=== PATIENT | male | born 1975 | race Caucasian/White ===

== ENCOUNTER 2020-05-13 15:27 | Outpatient (REF) | payer OTHER, SELFPAY | END 2020-05-13 15:28 | disposition home or self-care (01) | LOC: HO.LAB 15:27 | PROVIDERS: PCP Internal Medicine; Visit Provider Internal Medicine | DX: Z20.822 Contact with and (suspected) exposure to COVID-19 (principal) | CPT/HCPCS: 36415; C9803; U0003 ==

== ENCOUNTER 2020-05-22 07:35 | Outpatient (REF) | payer OTHER, SELFPAY | END 2020-05-22 07:36 | disposition home or self-care (01) | LOC: HO.LAB 07:35 | PROVIDERS: Visit Provider Internal Medicine | DX: Z20.822 Contact with and (suspected) exposure to COVID-19 (principal) | CPT/HCPCS: 36415; C9803; U0003 ==

== ENCOUNTER 2020-08-03 02:19 | Emergency (ER) | payer OTHER, SELFPAY ==
--- NOTE | ~2020-08-03 | XR_ITS ---
EXAMINATION: CHEST 1 VIEW CLINICAL INFORMATION: Chest pain. COMPARISON: None. TECHNIQUE: An AP view of the chest is provided. FINDINGS: The cardiac silhouette is not enlarged. The mediastinal and hilar contours are unremarkable. There are neither pleural effusions nor pneumothoraces. There is mild bibasilar atelectasis. There are no consolidations. The osseous structures are unremarkable. XR/XR chest 1V IMPRESSION: No consolidations. Mild bibasilar atelectasis.
--- NOTE | 2020-08-03 02:27 | ECG_ITS ---
Test Reason : CHEST PAIN Blood Pressure : / mmHG Vent. Rate : 091 BPM Atrial Rate : 091 BPM P-R Int : 162 ms QRS Dur : 086 ms QT Int : 384 ms P-R-T Axes : 040 034 025 degrees QTc Int : 472 ms Normal sinus rhythm Cannot rule out Anterior infarct , age undetermined Abnormal ECG When compared with ECG of 09-JUN-2007 09:00, Nonspecific T wave abnormality now evident in Anterior leads QT has lengthened Referred By: Leanna Jesus Electronically Signed By:Dilip Ramesh
--- NOTE | 2020-08-03 02:28 | ED.CHESTPAIN ---
HPI - Chest Pain General Chief Complaint: Chest Pain Stated Complaint: chest pressure Time Seen by Provider: 08/03/20 02:27 Source: patient and EMS Mode of arrival: EMS Limitations: no limitations History of Present Illness HPI narrative: 45 years old male came in by ambulance for assessment of left-sided chest pain started around 01:30. 45-year-old male with history of left-sided chest pain for 1 year on and off, described as left chest side of dullness pain, no radiation, intermittent, when it comes is about 6/10, patient notices if he use cocaine he gets this chest pain patient admitted to use a small amount of cocaine IV earlier today 8 hours ago, patient normally active but never had exertional chest pain. Nothing makes the pain worse or better. Related Data Previous Rx's Medication Instructions Recorded hydrochlorothiazide 25 mg PO DAILY #30 tab 08/03/20 Allergies Allergy/AdvReac Type Severity Reaction Status Date / Time No Known Allergies Allergy Mild UNKNOWN Verified 08/03/20 02:28 Review of Systems Review of Systems: All other systems are reviewed and are negative Constitutional: Reports as per HPI and Reports no additional constitutional complaints Eyes: Reports as per HPI and Reports no additional eye complaints Reports system reviewed and no additional complaints, except as documented Cardiovascular: Reports as per HPI and Reports no additional cardiovascular complaints Respiratory: Reports as per HPI and Reports no additional respiratory complaints Gastrointestinal: Reports as per HPI and Reports no additional gastrointestinal complaints Genitourinary: Reports no additional female genitourinary complaints Musculoskeletal: Reports no additional musculoskeletal complaints Skin/Breast: Reports system reviewed and no additional complaints, except as docu Psychiatric: Reports no additional psychiatric complaints Endocrine: Reports no additional endocrine complaints Hematologic/Lymphatic: Reports no additional hematologic/lymphatic complaints Allergic/Immunologic: Reports no additional allergic/immunologic complaints Reports system reviewed and no additional complaints, except as documented and Reports Abnormal speech present [facility] Past Medical History Medical History (Updated 08/03/20 @ 06:15 by Leanna Jesus MD) Substance abuse Social History Social History Advance Directives: No Advance Directives Information Provided: No Physical Exam Vital Signs: Vital Signs: Last Vital Signs Temp 98.7 F 08/03/20 02:29 Pulse 88 08/03/20 02:29 Resp 18 08/03/20 02:29 BP 151/96 H 08/03/20 02:29 Pulse Ox 98 08/03/20 02:29 Body Mass Index 30.8 Vital signs have been reviewed as appeared to be correct. Blood pressure elevated. Heart rate normal. Respiration rate normal. Temperature normal. Oxygen saturation normal. Appearance: Alert. Oriented X3. No acute distress. Anxious. Head: Normal external exam. Normocephalic. Atraumatic. No Rodriguez signs noted. No raccoon eyes noted Eyes: PERRLA. EOMI. Conjunctiva and sclera normal. Eyelids normal. ENT: TM's Normal. Pharynx normal. Uvula midline. Moist mucous membranes. No trismus noted. No drooling noted. No muffled voice noted. Neck: Normal inspection. Neck supple. FROM. No adenopathy. Thyroid Normal. No meningeal signs. No neck mass noted. CVS: Normal heart rate and rhythm. Heart sound normal. No murmurs noted. Pulses normal throughout. Respiratory: No respiratory distress. Painless inspiration. Breath sounds normal. No wheezes/rales/rhonchi noted. Chest nontender. No accessory muscle usage noted or decreased air movement noted. Abdomen: Soft and nontender. Bowel sounds normal in all 4 quadrants. No distention noted. No organomegaly noted. No visible injury noted. Back: No CVA tenderness. Full range of motion noted. Skin: Skin warm and dry. Normal skin color. Normal skin turgor. No rashes/lesions/lacerations noted. Extremities: No lower extremity edema. Extremities exhibit normal range of motion. Extremities nontender. Neuro: Oriented X 3. No motor deficit. No sensory deficit. Reflexes normal. Course Course Course Narrative: Assessment and plan. 45-year-old male with history of anxiety and drug abuse, patient came in after used cocaine IV with chest pain, patient has no evidence of ACS on the EKG, 1st troponin is negative 2nd troponin is due at 06:[address] Carter to check that then discharge the patient home but negative. Patient also had no recent travel no lower extremity swelling patient has a normal D-dimer. Patient is known to have hypertension due to no insurance and no PCP patient is not taking any medicine will start the patient on hydrochlorothiazide 25 mg daily until he sees his doctor in a few weeks. MDM - Chest Pain Lab Data Attestation: I reviewed the patient's lab results. Result diagrams: 08/03/20 03:24 08/03/20 03:24 Labs: Lab Results 08/03/20 08/03/20 08/03/20 Range/Units 03:24 03:24 03:24 WBC 7.1 (4.8-10.8) X10*3/uL RBC 4.39 L (4.60-5.80) X10*6/uL Hgb 13.5 L (14.0-18.0) g/dl Hct 38.3 L (42-52) % MCV 87.2 (80-98) fL MCH 30.8 (27.0-33.0) pg MCHC 35.2 (31.0-36.0) g/dl RDW 13.2 (11.0-16.0) % Plt Count 229 (160-400) X10*3/uL MPV 8.9 L (9.4-12.4) fL Immature Gran % (Auto) 0.3 (0.0-0.4) % Neut % (Auto) 70.8 (45-73) % Lymph % (Auto) 19.5 L (20-40) % [place] % (Auto) 7.7 (2-11) % Eos % (Auto) 1.3 (0-4) % Baso % (Auto) 0.4 (0-2) % Lymph # (Auto) 1.4 (1.2-4.9) X10*3/uL [place] # (Auto) 0.6 (0.1-1.2) X10*3/uL Eos # (Auto) 0.1 (0.0-0.4) X10*3/uL Baso # (Auto) 0.0 (0.0-0.2) X10*3/uL Abs Immat Gran (auto) 0.02 (0.00-0.03) X10*3/uL Absolute Neuts (auto) 5.1 (2.0-8.3) X10*3/uL Absolute Nucleated RBC 0.000 (0.0-0.012) X10*3/uL Nucleated RBC % (auto) 0.0 (0.0-0.2) /100WBC D-Dimer NG/ML Sodium 136 (135-145) mmol/L Potassium 4.4 (3.3-5.1) mmol/L Chloride 98 (96-108) mmol/L Carbon Dioxide 29 (22-29) mmol/L Anion Gap 13 (12-20) BUN 15 (9-16) mg/dL Creatinine 1.08 (0.5-1.4) mg/dL Estim Creat Clear Calc 113.4 Estimated GFR > 60 Random Glucose 99 (60-115) mg/dL Calcium 8.6 (8.4-10.2) mg/dL Total Bilirubin 0.2 (0.0-1.0) mg/dL Direct Bilirubin 0.2 (0.0-0.5) mg/dL AST 27 (5-37) U/L ALT 37 (0-40) U/L Alkaline Phosphatase 87 (39-117) U/L Troponin I High Sens < 3.5 (<3.5-35.0) ng/L Total Protein 7.1 (6.5-8.0) g/dL Albumin 4.2 (3.5-5.0) g/dL Lipase 22 (8-78) U/L 04// Range/Units 03:24 WBC (4.8-10.8) X10*3/uL RBC (4.60-5.80) X10*6/uL Hgb (14.0-18.0) g/dl Hct (42-52) % MCV (80-98) fL MCH (27.0-33.0) pg MCHC (31.0-36.0) g/dl RDW (11.0-16.0) % Plt Count (160-400) X10*3/uL MPV (9.4-12.4) fL Immature Gran % (Auto) (0.0-0.4) % Neut % (Auto) (45-73) % Lymph % (Auto) (20-40) % [place] % (Auto) (2-11) % Eos % (Auto) (0-4) % Baso % (Auto) (0-2) % Lymph # (Auto) (1.2-4.9) X10*3/uL [place] # (Auto) (0.1-1.2) X10*3/uL Eos # (Auto) (0.0-0.4) X10*3/uL Baso # (Auto) (0.0-0.2) X10*3/uL Abs Immat Gran (auto) (0.00-0.03) X10*3/uL Absolute Neuts (auto) (2.0-8.3) X10*3/uL Absolute Nucleated RBC (0.0-0.012) X10*3/uL Nucleated RBC % (auto) (0.0-0.2) /100WBC D-Dimer 221 NG/ML Sodium (135-145) mmol/L Potassium (3.3-5.1) mmol/L Chloride (96-108) mmol/L Carbon Dioxide (22-29) mmol/L Anion Gap (12-20) BUN (9-16) mg/dL Creatinine (0.5-1.4) mg/dL Estim Creat Clear Calc Estimated GFR Random Glucose (60-115) mg/dL Calcium (8.4-10.2) mg/dL Total Bilirubin (0.0-1.0) mg/dL Direct Bilirubin (0.0-0.5) mg/dL AST (5-37) U/L ALT (0-40) U/L Alkaline Phosphatase (39-117) U/L Troponin I High Sens (<3.5-35.0) ng/L Total Protein (6.5-8.0) g/dL Albumin (3.5-5.0) g/dL Lipase (8-78) U/L Imaging Data Chest x-ray: Radiologist's impression: No acute pathology. ECG Data ECG #1: Interpretation: Normal sinus rhythm at 91 beats per minute, normal axis deviation, normal intervals, nonspecific T-wave flattening in V4, V5, V6. Discharge Plan Discharge Clinical Impression: Chest pain Qualifiers: Chest pain type: unspecified Qualified Code(s): R07.9 - Chest pain, unspecified Hypertension Qualifiers: Hypertension type: essential hypertension Qualified Code(s): I10 - Essential (primary) hypertension Patient Disposition: Home, Self-Care Instructions: Chest Pain (ED), Hypertension (ED) Prescriptions: New hydrochlorothiazide 25 mg tablet 25 mg PO DAILY Qty: 30 RF: 0 Referrals: Cruz Ball MD [Physician] - 2 days
[2020-08-03 02:29] VITALS: BP 151/96; BP 158/90; PULSE 105; PULSE 88; RESP 18; TEMP 37.1; O2SAT 97; O2SAT 98; BMI 30.8
[2020-08-03 03:42] LABS: MANUAL DIFF FLAG NO
[2020-08-03 03:44] LABS: Basophils Percent Auto 0.4 % (0-2); Eosinophils Absolute Auto 0.1 X10*3/uL (0.0-0.4); Eosinophils Percent Auto 1.3 % (0-4); Hematocrit 38.3 % (42-52); Hemoglobin 13.5 g/dl (14.0-18.0); Imm Gran Abs Auto 0.02 X10*3/uL (0.00-0.03); Imm Gran Pct Auto 0.3 % (0.0-0.4); Lymphocytes Absolute Auto 1.4 X10*3/uL (1.2-4.9); Lymphocytes Percent Auto 19.5 % (20-40); Mean Corpuscular HGB Conc 35.2 g/dl (31.0-36.0); Mean Corpuscular Hemoglobin 30.8 pg (27.0-33.0); Mean Corpuscular Volume 87.2 fL (80-98); Mean Platelet Volume 8.9 fL (9.4-12.4); Monocytes Absolute Auto 0.6 X10*3/uL (0.1-1.2); Monocytes Percent Auto 7.7 % (2-11); Neutrophils Absolute Auto 5.1 X10*3/uL (2.0-8.3); Neutrophils Percent Auto 70.8 % (45-73); Platelet Count 229 X10*3/uL (160-400); Red Blood Count 4.39 X10*6/uL (4.60-5.80); Red Cell Distribution Width 13.2 % (11.0-16.0); White Blood Count 7.1 X10*3/uL (4.8-10.8)
[2020-08-03 03:53] LABS: D Dimer 221 NG/ML
[2020-08-03 04:10] LABS: Alanine Aminotransferase 37 U/L (0-40); Albumin Level 4.2 g/dL (3.5-5.0); Alkaline Phosphatase 87 U/L (39-117); Anion Gap 13 (12-20); Aspartate Amino Transferase 27 U/L (5-37); Bilirubin Direct 0.2 mg/dL (0.0-0.5); Bilirubin Total 0.2 mg/dL (0.0-1.0); Blood Urea Nitrogen 15 mg/dL (9-16); Calcium 8.6 mg/dL (8.4-10.2); Carbon Dioxide 29 mmol/L (22-29); Chloride 98 mmol/L (96-108); Creatinine Clr Calc Pharmacy 113.4; Estimated Glomerular Filt Rate > 60; Glucose Random 99 mg/dL (60-115); Lipase 22 U/L (8-78); Potassium 4.4 mmol/L (3.3-5.1); Sodium 136 mmol/L (135-145); Total Protein 7.1 g/dL (6.5-8.0)
[2020-08-03 04:12] LABS: Troponin-I High Sensitivity < 3.5 ng/L (<3.5-35.0)
[2020-08-03] MEDS: LORazepam 2 MG/ML VIAL 1 MG IVPUSH (04:40)
[2020-08-03 06:31] VITALS: BP 118/65; PULSE 74; RESP 16; O2SAT 97
[2020-08-03] MEDS: hydroCHLOROthiazide 25 MG TABLET PO (06:31)
[2020-08-03 09:08] LABS: Troponin-I High Sensitivity < 3.5 ng/L (<3.5-35.0)
== END 2020-08-03 09:22 | disposition home or self-care (01) ==
PROVIDERS: Emergency Provider Emergency Medicine
DX: R07.9 Chest pain, unspecified (principal); I10 Essential (primary) hypertension; F14.10 Cocaine abuse, uncomplicated
CPT/HCPCS: 36415; 71045; 80048; 80076; 83690; 84484; 85025; 85379; 93005; 96374; 99283; 99284; J2060

== ENCOUNTER 2022-09-20 12:33 | Emergency (ER) | payer OTHER, SELFPAY ==
--- NOTE | ~2022-09-20 | XR_ITS ---
EXAMINATION: XR SHOULDER, LEFT CLINICAL INFORMATION: Left shoulder pain. COMPARISON: None available. TECHNIQUE: AP external rotation, Grashey, scapular Y, and axillary views of the left shoulder. FINDINGS: The bones and soft tissues are normal. Tiny densities are seen along the superior margin of the bony glenoid. Glenohumeral and acromioclavicular alignment is anatomic with normal joint space. No abnormal soft tissue calcifications. Old healed lateral left seventh rib fracture. XR/XR shoulder LT min 2V IMPRESSION: Tiny densities along the superior margin of the bony glenoid could be degenerative in nature. Avulsion type injury cannot be excluded. Correlate with physical exam. No other significant abnormality.
[2022-09-20 12:48] VITALS: BP 137/97; PULSE 91; RESP 20; TEMP 36.7; O2SAT 99; BMI 30.8
--- NOTE | 2022-09-20 12:48 | ED_ITS ---
HPI - General Adult General Chief complaint: Extremity Injury, Upper Stated complaint: L SHOULDER PAIN X'S FOR DAYS,NO INJURY PER EMS Time Seen by Provider: 09/20/22 13:23 Source: patient Limitations: no limitations History of Present Illness HPI narrative: 47-year-old male complaining of left shoulder pain over the past 3 days. 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 Patient denies any trauma or falls or injuries to the left shoulder. Patient states pain increases with any range of motion is on the lateral aspect of the left shoulder. Patient denies chest pain shortness of breath fever chills. Patient states he is on methadone daily and has not had a slip up and is quite some time. Symptoms are [id number] no other complaints at this time. Related Data Previous Rx's Medication Instructions Recorded hydrochlorothiazide 25 mg tablet 25 mg PO DAILY #30 tabs 08/03/20 methocarbamol 750 mg tablet 750 mg PO TID PRN muscle spasm #20 09/20/22 tabs naproxen 500 mg tablet 500 mg PO BID PRN pain #30 tabs 09/20/22 prednisone 20 mg tablet 40 mg PO DAILY 3 days #6 tabs 09/20/22 Allergies Allergy/AdvReac Type Severity Reaction Status Date / Time No Known Allergies Allergy Mild UNKNOWN Verified 09/20/22 12:50 Review of Systems Review of Systems: General: No fever, no chills Ophthalmology: No vision changes, no discharge ENT: No sore throat, no ear pain Cardiovascular: No chest pain, no peripheral edema, no shortness of breath Respiratory: No dyspnea, no sputum production, no cough Muscle skeletal: Left shoulder pain GI: No abdominal pain, no nausea vomiting, no diarrhea Skin: No rash Immunology: No immunocompromised Hematology: No bleeding, no bruising PMFSH Past Medical History Attestation statement: The following information was validated with the patient. Medical History Substance abuse Social History Social History Advance Directives: No Advance Directives Information Provided: Yes Physical Exam ED Vital Signs: Vital Signs - 24 hr 09/20/22 12:48 Temperature 98.1 F Pulse Rate 91 Respiratory Rate 20 Blood Pressure 137/97 H Pulse Oximetry 99 Oxygen Delivery Method Room Air BMI result Body Mass Index 30.8 General appearance: Awake, alert, cooperative, in no acute distress Skin: Warm, dry, no rash Eyes: PERRL, EOMI, no icterus ENT: Oropharynx normal, uvula midline Neck: Soft supple full range of motion Pulmonary: Breath sounds clear to auscultation bilaterally, no accessory muscle use Cardiovascular: Regular rate and rhythm, no murmurs and rubs Extremities: Left shoulder home lateral tenderness over the tendon. Pain increases with range of motion pain with can test but overall rotator cuff seems intact. No crepitus decreased range of motion secondary to pain clavicle nontender. Neuro: Alert oriented x3, no focal deficit Psych: Normal affect Course Course Course Narrative: RME: 47 yold male presents to the ED for left shoulder pain for 3 days. No trauma. No chest pain or tingling in arms. patient has range of motion of shoulder but with pain. neuro/vascular/motor exam of left extremity intact. left shoulder xray ordered and EKG/labs due to age. Medications Administered Discontinued Medications Generic Name Dose Route Start Last Admin Trade Name Nainq PRN Reason Stop Dose Admin Ketorolac Tromethamine 30 mg 09/20/22 13:31 09/20/22 13:37 Ketorolac Tromethamine 30 Mg/Ml Vial IM 09/20/22 13:32 30 mg ONCE ONE Administration Methocarbamol 750 mg 09/20/22 13:31 09/20/22 13:37 Methocarbamol 750 Mg Tablet PO 09/20/22 13:32 750 mg ONCE ONE Administration Medical Decision Making Medical Decision Making MDM Narrative: Left shoulder calcified tendinitis Left shoulder rotator cuff injury Left shoulder sprain Left shoulder arthritis Left shoulder impingement ACS less likely patient denies chest pain shortness of breath will check 12 lead 47-year-old male is currently on methadone secondary to past opiate addiction. Presents with left shoulder pain atraumatic in nature 3-5 days nature. 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 Pain is located lateral aspect of the left shoulder will check a left shoulder film at this time 12 lead EKG. Do not see a reason for her labs at this time. 30 mg Toradol IM 750 mg Robaxin p.o. Patient unable to perform the Neer test patient's injuries concerning for impingement verses labrum injury or underlying avulsion fragment neck glenoid as patient has lateral tenderness when pressing will plan to have follow-up with orthopedics patient instructed that they need to pass leave work do [id number] exercises the shoulder to avoid frozen shoulder. Will place patient on Naprosyn Robaxin and prednisone short course 12 lead EKG was done normal sinus rhythm at a rate of [address] elevation Radiology Impression Discussion of test interpretation with radiology: I have reviewed the radiologist's reading. Radiologist Impression: [address] [address] XRay Report Signed Patient: Oswald Finch MR#: [id number] : 1975 Acct:[id number] Age/Sex: 47 / M ADM Date: 09/20/22 Loc: HO.ED Attending Dr: Ordering Physician: Jose Cruz Hernandez Date of Service: 09/20/22 Procedure(s): XR shoulder LT min 2V Accession Number(s): [id number] cc: Jose Cruz Hernandez~ EXAMINATION: XR SHOULDER, LEFT CLINICAL INFORMATION: Left shoulder pain.? COMPARISON: None available.? TECHNIQUE: AP external rotation, Grashey, scapular Y, and axillary views of the left shoulder. FINDINGS: The bones and soft tissues are normal. Tiny densities are seen along the superior margin of the bony glenoid. Glenohumeral and acromioclavicular alignment is anatomic with normal joint space. No abnormal soft tissue calcifications. Old healed lateral left seventh rib fracture. XR/XR shoulder LT min 2V IMPRESSION: Tiny densities along the superior margin of the bony glenoid could be degenerative in nature. Avulsion type injury cannot be excluded. Correlate with physical exam. No other significant abnormality. ? Dictated By: Rusty Kwok MD Signed By: <Electronically signed by Rusty Kwok MD in OV> 09/20/22 1337 DD/ 1301 TD/TT:? Helicopter Engineer: ARACELIS Discharge Plan Discharge Clinical Impression: Impingement of left shoulder, Left shoulder strain Patient Disposition: Home, Self-Care Instructions: Rotator Cuff Injury (ED), Rotator Cuff Injury Exercises (DC) Additional Instructions: X-ray shows signs of a fragment in the glenoid and might be from an old avulsion injury follow-up with orthopedics as needed Symptoms are concerning for left shoulder impingement versus rotator cuff injury and/or labrum injury I want to use a sling but you need to passively stretch with range of motion very often to avoid frozen shoulder Medication as directed Prescriptions: New naproxen 500 mg tablet 500 mg PO BID PRN (Reason: pain) Qty: 30 0RF methocarbamol 750 mg tablet 750 mg PO TID PRN (Reason: muscle spasm) Qty: 20 0RF prednisone 20 mg tablet 40 mg PO DAILY 3 Days Qty: 6 0RF No Action hydrochlorothiazide 25 mg tablet 25 mg PO DAILY Qty: 30 0RF Referrals: Janice Dowling MD [Physician] - (Left shoulder pain question glenoid avulsion from old injury versus rotator cuff injury/impingement) Stand Alone Forms: Work/School Release Interventions: ED Discharge Assessment Last Done: 09/20/22 14:21 Discharge Date/Time: 09/20/22 14:22
--- NOTE | 2022-09-20 12:49 | ECG_ITS ---
Test Reason : CHEST PAIN Blood Pressure : / mmHG Vent. Rate : 087 BPM Atrial Rate : 087 BPM P-R Int : 154 ms QRS Dur : 086 ms QT Int : 362 ms P-R-T Axes : 027 016 011 degrees QTc Int : 435 ms Normal sinus rhythm Normal ECG When compared with ECG of 03-AUG-2020 02:36, Nonspecific T wave abnormality no longer evident in Anterior leads Referred By: Jose Cruz Hernandez Electronically Signed By:JENNY DESHPANDE
[2022-09-20] MEDS: methocarbamoL 750 MG TABLET PO (13:37)
[2022-09-20] MEDS: Ketorolac Tromethamine 30 MG/ML VIAL IM (13:37)
== END 2022-09-20 14:22 | disposition home or self-care (01) ==
PROVIDERS: Emergency Provider Emergency Medicine Emergency Medical Services
DX: M25.512 Pain in left shoulder (principal); R07.89 Other chest pain; Z79.899 Other long term (current) drug therapy
CPT/HCPCS: 73030; 93005; 96372; 99283; 99284; J1885

== ENCOUNTER 2022-09-23 14:22 | Inpatient (IN) | payer OTHER, SELFPAY ==
[2022-09-23] VITALS (7 sets, daily range): BP systolic 90–183; BP diastolic 58–103; PULSE 84–102; RESP 16–20; TEMP 36.6–36.9; O2SAT 97–100; BMI 30.8
--- NOTE | ~2022-09-23 | US_ITS ---
EXAMINATION: NONINVASIVE ASSESSMENT OF THE ARTERIES LEFT UPPER EXTREMITY Edis Irwin MD CLINICAL INFORMATION: Decreased left pulse with arm swelling TECHNIQUE: Duplex Doppler techniques were used to examine the vasculature of the left upper extremity. Velocity measurements and color flow Doppler imaging was performed in the subclavian arteries,, brachial arteries, radial artery and ulnar artery. Fortunately, the axillary artery could not be imaged secondary to the patient's pain and inability to move the arm. COMPARISON: None FINDINGS: Multiphasic flow is noted throughout the left upper extremity and no significant plaque is seen. Peak systolic velocities in cm per second are as follows: Subclavian artery proximal: 87.6 Subclavian artery mid: 93.2 Subclavian artery distal: 114 Axillary artery: Not seen Brachial artery proximal: 92.5 Brachial artery mid: 96.7 Brachial artery distal: 69.1 Radial artery mid: 43.5 Ulnar artery: 24.9 No areas of velocity acceleration are seen to suggest a focal stenosis. US/US arterial duplex UE LT IMPRESSION: There is no evidence of any hemodynamically significant left upper extremity arterial disease by waveform or duplex Doppler criteria at rest.
--- NOTE | ~2022-09-23 | CT_ITS ---
EXAMINATION: CT LEFT HUMERUS WITH IV CONTRAST CLINICAL INFORMATION: Left upper arm pain, infection, evaluate for abscess. COMPARISON: Left shoulder radiograph 09/20/2022. TECHNIQUE: Contiguous axial imaging was performed of the left humerus following the administration of 85 cc of intravenous Omnipaque 350. Sagittal and coronal reformats were obtained. This CT examination was performed using dose optimization techniques as appropriate, variously including the following: *Automated exposure control *Adjustment of mA and/or kV according to patient size (this includes techniques or standardized protocols for targeted exams where dose is matched to indication/reason for exam; i.e. extremities or head) *Use of iterative reconstruction technique DLP: 215 mGy-cm FINDINGS: Limited evaluation secondary to motion and patient body habitus. No evidence of acute fractures or malalignment. No destructive appearing osseous lesions. 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 There is diffuse soft tissue thickening and stranding along the included portions of the left upper extremity. No organized collection or abscess. Incidentally noted 0.6 cm solid pulmonary nodule in the left upper lobe (5:180) and 0.8 cm solid pulmonary nodule in the left lower lobe (5:275). Platelike opacities in the left lung base (5:345) could represent subsegmental atelectasis. Splenules noted along the anterior surface of the spleen. CT/CT humerus LT w IV con IMPRESSION: Limited evaluation secondary to motion and patient body habitus. 1. No evidence of organized collection or abscess. 2. Diffuse soft tissue thickening and stranding along the included portions of the left upper extremity. 3. Incidentally noted 0.6 cm solid pulmonary nodule in the left upper lobe and 0.8 cm solid pulmonary nodule in the left lower lobe. Recommend further evaluation with a chest CT.
--- NOTE | ~2022-09-23 | US_ITS ---
EXAMINATION: US VENOUS WITH DOPPLER UPPER EXTREMITY, LEFT CLINICAL INFORMATION: Swelling and pain COMPARISON: None available. TECHNIQUE: Ultrasound of the upper extremity is performed using compression sonography and color and pulse Doppler flow with assessment of augmentation of flow. There is also imaging and Doppler assessment of the jugular and subclavian veins. Spectral analysis with color-flow imaging is performed. FINDINGS: The exam was difficult due to excessive edema and swelling and inability to move the arm. For this reason, the axillary vein was not seen as the patient could not move the arm and the cephalic vein was not seen secondary to arm swelling.. Otherwise the exam was unremarkable with respiratory variation, normal compression, and augmented flow are noted throughout the remainder of the upper extremity including the brachial, cubital, and radial and ulnar veins. There is normal flow in the internal jugular and subclavian veins. There is no visible deep or superficial thrombophlebitis although the cephalic vein was not seen. If the patient's symptoms progress, a followup ultrasound in 5 -7 days might be of value to exclude proximal propagation from a nonvisualized distal arm vein. US/US venous duplex UE LT IMPRESSION: No DVT demonstrated in the left upper extremity with limitations as described above.
--- NOTE | 2022-09-23 15:32 | PC.NURSE ---
+ L radial pulse heard with doppler, significantly quieter than that of the R side. Pt is drowsy though easily roused, mildly hypotensive. states occasional heroin use in addition to daily MTD. states he was not dosed this morning, due to inability to go anywhere with his arm pain. also denies any illicit substance use today.
--- NOTE | 2022-09-23 15:54 | ECG_ITS ---
Test Reason : DIZZINESS Blood Pressure : / mmHG Vent. Rate : 088 BPM Atrial Rate : 088 BPM P-R Int : 148 ms QRS Dur : 080 ms QT Int : 358 ms P-R-T Axes : 034 002 014 degrees QTc Int : 433 ms Sinus rhythm with occasional Premature ventricular complexes Cannot rule out Anterior infarct , age undetermined Abnormal ECG When compared with ECG of 20-SEP-2022 13:52, Premature ventricular complexes are now Present Referred By: Avtar Jasso Electronically Signed By:JENNY DESHPANDE
--- NOTE | 2022-09-23 16:31 | PC.NURSE ---
IV FROM EMS BLOWN. MULTIPLE ATTEMPTS FOR IV PLACEMENT & BLOOD DRAW UNSUCCESSFUL. WILL ATTEMPT US IV PLACEMENT. US TEACH AT BEDSIDE FOR EXAMS.
[2022-09-23] MEDS: 0.9 % Sodium Chloride 1,000 ML 999 ML IVCONT ×2 (17:22→19:34)
--- NOTE | 2022-09-23 17:23 | PC.NURSE ---
MD GARZON AT BEDSIDE FOR R EJ PLACEMENT. UNABLE TO DRAW BACK BLOOD, PHLEB CONTACTED FOR BLOOD DRAWS. IVF RUNNING
--- NOTE | 2022-09-23 18:29 | PC.NURSE ---
Lab contacted for blood work.
--- NOTE | 2022-09-23 18:41 | PC.NURSE ---
PHLEBOTOMY AT BEDSIDE. PT UP NEXT FOR ARTERIAL US READ PER RADIOLOGY STAFF.
--- NOTE | 2022-09-23 19:06 | ED.GENADULT ---
HPI - General Adult General Chief complaint: Extremity Problem Stated complaint: left arm pain, allergic reaction, per ems Time Seen by Provider: 09/23/22 14:30 History of Present Illness HPI narrative: patient main complaint is left upper arm pain that has worsened significantly over past 3 days, the arm is now somewhat swollen and pain is more severe and he called EMS for this pain He is an opiate user but says he has not injected recently He also said he has felt dizzy and weak, denies any chest pain or shortness of breath denies fever denies chills EMS reported that on arrival he had a rash that they believed was hives and treated with Benadryl with improvement, he never had shortness of breath difficulty breathing throat swelling or any difficulty breathing or swallowing He was here several days ago with complaint of arm pain that was much more minor and was diagnosed with musculoskeletal shoulder pain Related Data Previous Rx's Medication Instructions Recorded hydrochlorothiazide 25 mg tablet 25 mg PO DAILY #30 tabs 08/03/20 methocarbamol 750 mg tablet 750 mg PO TID PRN muscle spasm #20 09/20/22 tabs naproxen 500 mg tablet 500 mg PO BID PRN pain #30 tabs 09/20/22 prednisone 20 mg tablet 40 mg PO DAILY 3 days #6 tabs 09/20/22 Allergies Allergy/AdvReac Type Severity Reaction Status Date / Time No Known Allergies Allergy Mild UNKNOWN Verified 09/23/22 14:33 [facility] Past Medical History Source: nursing notes reviewed Medical History Substance abuse Social History Social History Use of substances other than those prescribed or required for medical reasons: Yes Substance Use Type: Opiates Substance Use Frequency: Chronic Longstanding Last Used Substance: Days (ago) Advance Directives: No Advance Directives Information Provided: Yes Physical Exam ED Vital Signs: Vital Signs - 24 hr 09/23/22 14:33 09/23/22 16:52 09/23/22 17:43 Temperature 97.9 F 98.4 F Pulse Rate 87 88 Respiratory Rate 16 18 Blood Pressure 90/58 L 96/67 101/60 Pulse Oximetry 100 99 Oxygen Delivery Method Room Air Room Air 09/23/22 18:35 Temperature 98.4 F Pulse Rate 87 Respiratory Rate 18 Blood Pressure 102/68 Pulse Oximetry 98 Oxygen Delivery Method Room Air BMI result Body Mass Index 30.8 Patient's blood pressure was noted to be 90/58, repeat was 96/67, pulse rate was in the 80s respiratory rate 16 O2 sat 100 general appearance is no acute distress, sleepy appearing Head is normocephalic atraumatic Eyes pupils equal and reactive extraocular motions are intact The pharynx is clear without redness swelling or exudate there is no impairment of breathing and swallowing voice is normal there is no swelling of lips tongue or uvula Neck is supple no stridor Chest clear to auscultation bilateral Heart no murmur Abdomen soft nontender Extremities the left arm appears to be swollen around the upper arm there are multiple small areas of redness and induration on both arms, pulses are not easily palpated in either arm, left arm is cooler than the right arm to touch, color is the same in both are Right arm has some small red indurated areas as well but there is no tenderness or swelling, right arm is somewhat warmer to the touch than the left The skin there is several small red patches which may be remaining hives but no significant rash neuro no focal deficit Course Course Course Narrative: Doppler exam of bilateral arms showed diminished flow in the left arm compared to the right Arterial ultrasound as well as venous ultrasound were ordered venous Doppler did not show any clot, arterial Doppler of left upper extremity showed no evidence of any hemodynamically significant left upper extremity arterial disease Patient was hydrated with 1 L with blood pressure coming up to 102/68, no tachycardia There was difficulty getting IV access and blood Patient remained stable and unchanged through the time of this note At 19:00 the case is signed out to Dr. Graham with CT pending, and blood spending Reevaluation(s) Reevaluation #1: US shows no arterial occlusion - L arm CT scan is pending. IV vancomycin/zosyn was ordered. PO dilaudid for pain was ordered signed out to Dr. Cano pending CT scan Medications Administered Discontinued Medications Generic Name Dose Route Start Last Admin Trade Name Freq PRN Reason Stop Dose Admin Hydromorphone HCl 2 mg 09/23/22 19:19 09/23/22 19:34 Hydromorphone Hcl 2 Mg Tablet PO 09/23/22 19:20 2 mg ONCE ONE Administration Sodium Chloride 1,000 mls @ 999 mls/hr 09/23/22 16:00 09/23/22 18:32 Ns IVCONT 09/23/22 17:00 Infused .Q1H1M LACIE Infusion Vancomycin HCl 1,000 mg/ 270 mls @ 270 mls/hr 09/23/22 18:37 09/23/22 19:39 Sodium Chloride IV 09/23/22 19:36 Not Given ONCE ONE Piperacillin Sod/Tazobactam 50 mls @ 100 mls/hr 09/23/22 18:38 09/23/22 20:11 Sod 3.375 gm/ Sodium Chloride IV 09/23/22 19:07 Infused ONCE ONE Infusion Vancomycin HCl 2,000 mg in 500 mls @ 250 mls/hr 09/23/22 18:48 09/23/22 20:07 Vancomycin/Ns IV 09/23/22 20:47 250 mls/hr ONCE ONE Administration Sodium Chloride 1,000 mls @ 999 mls/hr 09/23/22 19:15 09/23/22 20:10 Ns IVCONT 09/23/22 20:15 Infused .Q1H1M LACIE Infusion Iohexol 100 ml 09/23/22 20:49 09/23/22 20:49 Iohexol 350 Mg/Ml 100 Ml Infus..Btl IV 09/23/22 20:50 85 ml ONCE ONE Administration Procedures EJ/Peripheral Line Neck R: Time Out Performed: Yes Skin Cleansed in Sterile Fashion: Yes Size (gauge): 20 IV Secured and Dressing Applied: Yes Patient Tolerated Procedure: well and no complications Medical Decision Making Lab Data 09/23/22 19:10 09/23/22 19:18 Labs: Lab Results 09/23/22 09/23/22 09/23/22 Range/Units 19:10 19:18 21:10 WBC 15.2 H (4.8-10.8) X10*3/uL RBC 4.29 L (4.60-5.80) X10*6/uL Hgb 12.7 L (14.0-18.0) g/dl Hct 36.8 L (42.0-52.0) % MCV 85.8 (80.0-98.0) fL MCH 29.6 (27.0-33.0) pg MCHC 34.5 (31.0-36.0) g/dl RDW 13.3 (11.0-16.0) % Plt Count 287 (160-400) X10*3/uL MPV 8.7 L (9.4-12.4) fL Immature Gran % (Auto) 0.5 H (0.0-0.4) % Neut % (Auto) 90.5 H (45-73) % Lymph % (Auto) 4.3 L (20-40) % [place] % (Auto) 2.0 (2-11) % Eos % (Auto) 2.5 (0-4) % Baso % (Auto) 0.2 (0-2) % Lymph # (Auto) 0.7 L (1.2-4.9) X10*3/uL [place] # (Auto) 0.3 (0.1-1.2) X10*3/uL Eos # (Auto) 0.4 (0.0-0.4) X10*3/uL Baso # (Auto) 0.0 (0.0-0.2) X10*3/uL Abs Immat Gran (auto) 0.08 H (0.00-0.03) X10*3/uL Absolute Neuts (auto) 13.8 H (2.0-8.3) x10*3/uL Absolute Nucleated RBC 0.000 (0.0-0.012) X10*3/uL Nucleated RBC % (auto) 0.0 (0.0-0.2) /100WBC Smear Tech's Comments VERIFIED Sodium 137 (135-145) mmol/L Potassium 5.0 (3.3-5.1) mmol/L Chloride 105 (96-108) mmol/L Carbon Dioxide 24 (22-29) mmol/L Anion Gap 13 (12-20) BUN 32 H (9-16) mg/dL Creatinine 0.91 (0.5-1.4) mg/dL Estim Creat Clear Calc 131.8 Estimated GFR > 60 Random Glucose 80 (60-115) mg/dL Lactic Acid 1.1 (0.5-2.0) mmol/L Calcium 8.2 L (8.4-10.2) mg/dL Total Bilirubin 2.1 H (0.0-1.0) mg/dL Direct Bilirubin 1.1 H (0.0-0.5) mg/dL AST 14 (5-37) U/L ALT 8 (0-40) U/L Alkaline Phosphatase 110 (39-117) U/L Total Protein 5.3 L (6.5-8.0) g/dL Albumin 2.6 L (3.5-5.0) g/dL Discharge Plan Discharge Clinical Impression: Arm pain, left Cellulitis Qualifiers: Site of cellulitis: extremity Site of cellulitis of extremity: upper extremity Laterality: left Qualified Code(s): L03.114 - Cellulitis of left upper limb Elevated WBC count Qualifiers: Leukocytosis type: unspecified Qualified Code(s): D72.829 - Elevated white blood cell count, unspecified Patient Disposition: Still a Patient Prescriptions: No Action hydrochlorothiazide 25 mg tablet 25 mg PO DAILY Qty: 30 0RF naproxen 500 mg tablet 500 mg PO BID PRN (Reason: pain) Qty: 30 0RF methocarbamol 750 mg tablet 750 mg PO TID PRN (Reason: muscle spasm) Qty: 20 0RF prednisone 20 mg tablet 40 mg PO DAILY 3 Days Qty: 6 0RF
[2022-09-23 19:33] LABS: Lactic Acid 1.1 mmol/L (0.5-2.0)
[2022-09-23] MEDS: Piperacillin Sodium/Tazobactam 3.375 GM in 0.9 % Sodium Chloride 50 ML IV (19:34)
[2022-09-23] MEDS: HYDROmorphone HCl 2 MG TABLET PO (19:34)
[2022-09-23 19:42] LABS: Alanine Aminotransferase 8 U/L (0-40); Albumin Level 2.6 g/dL (3.5-5.0); Alkaline Phosphatase 110 U/L (39-117); Anion Gap 13 (12-20); Aspartate Amino Transferase 14 U/L (5-37); Bilirubin Direct 1.1 mg/dL (0.0-0.5); Bilirubin Total 2.1 mg/dL (0.0-1.0); Blood Urea Nitrogen 32 mg/dL (9-16); Calcium 8.2 mg/dL (8.4-10.2); Carbon Dioxide 24 mmol/L (22-29); Chloride 105 mmol/L (96-108); Creatinine Clr Calc Pharmacy 131.8; Estimated Glomerular Filt Rate > 60; Glucose Random 80 mg/dL (60-115); Sodium 137 mmol/L (135-145); Total Protein 5.3 g/dL (6.5-8.0)
[2022-09-23] MEDS: vancomycin/NS 2,000 MG/500 ML PLAST..BAG 250 MG IV (20:07)
[2022-09-23] MEDS: iohexoL 350 MG/ML 100 ML INFUS..BTL IV (20:49)
[2022-09-23 21:15] LABS: Basophils Percent Auto 0.2 % (0-2); Eosinophils Absolute Auto 0.4 X10*3/uL (0.0-0.4); Eosinophils Percent Auto 2.5 % (0-4); Hematocrit 36.8 % (42.0-52.0); Hemoglobin 12.7 g/dl (14.0-18.0); Imm Gran Abs Auto 0.08 X10*3/uL (0.00-0.03); Imm Gran Pct Auto 0.5 % (0.0-0.4); Lymphocytes Absolute Auto 0.7 X10*3/uL (1.2-4.9); Lymphocytes Percent Auto 4.3 % (20-40); MANUAL DIFF FLAG SCAN; Mean Corpuscular HGB Conc 34.5 g/dl (31.0-36.0); Mean Corpuscular Hemoglobin 29.6 pg (27.0-33.0); Mean Corpuscular Volume 85.8 fL (80.0-98.0); Mean Platelet Volume 8.7 fL (9.4-12.4); Monocytes Absolute Auto 0.3 X10*3/uL (0.1-1.2); Neutrophils Absolute Auto 13.8 x10*3/uL (2.0-8.3); Neutrophils Percent Auto 90.5 % (45-73); Platelet Count 287 X10*3/uL (160-400); Red Blood Count 4.29 X10*6/uL (4.60-5.80); Red Cell Distribution Width 13.3 % (11.0-16.0); SCAN SMEAR FLAG 1; White Blood Count 15.2 X10*3/uL (4.8-10.8)
[2022-09-23 21:40] LABS: SLIDE REVIEW VERIFIED
--- NOTE | 2022-09-23 22:22 | PHA.MEDREC ---
Pharmacy Consult ? Medication Reconciliation Pharmacy has completed the medication reconciliation. Methadone needs to be confirmed with kelly suh
[2022-09-23] MEDS: HYDROmorphone HCl 1 MG/ML SYRINGE IVPUSH (23:20)
--- NOTE | 2022-09-23 23:20 | PM.IMHP ---
History of Present Illness Date of Service: 09/23/22 Chief Complaint: Cellulitis This is a 47-year-old male with pertinent history of IV substance (opioid) use disorder on methadone who presents to the emergency department for evaluation of left upper extremity swelling, redness and pain. Patient states he has been having left upper extremity swelling and pain that started 3 days prior to presentation. It has been worsening and associated with erythema. No purulent drainage. No history of similar symptoms of cellulitis in the past. States his last IV drug use was 2 weeks ago. Patient denies fever, chills, chest discomfort, palpitations, shortness of breath, abdominal pain, changes in urinary or bowel habits. In the emergency department, patient was found to be septic Review of Systems Constitutional: Constitutional: Reports no additional constitutional complaints Cardiovascular: Cardiovascular: Reports no additional cardiovascular complaints Respiratory: Respiratory: Reports no additional respiratory complaints Gastrointestinal: Gastrointestinal: Reports no additional gastrointestinal complaints Genitourinary: Genitourinary: Reports no additional male genitourinary complaints Musculoskeletal: Musculoskeletal: Reports joint swelling PMFSH Medical History Substance abuse Pertinent family history: No family history of early CAD Social History Use of substances other than those prescribed or required for medical reasons: Yes Substance Use Type: Opiates Substance Use Frequency: Chronic Longstanding Last Used Substance: Days (ago) Advance Directives: No Advance Directives Information Provided: Yes Meds Allergies Allergy/AdvReac Type Severity Reaction Status Date / Time No Known Allergies Allergy Mild UNKNOWN Verified 09/23/22 14:33 Active Medications: Current Medications Pharmacy Consult (Consult Rx Perform Med Rec) 1 each MISCELLANE ONCE PRN PRN Reason: Consult order Home Medications Medication Instructions Recorded Confirmed Last Taken Type methadone 10 mg/mL oral 119 mg PO DAILY 09/23/22 09/22/22 History concentrate (Methadone Intensol) Physical Exam Vital Signs and Narrative: Vital Signs: Last Vital Signs Temp 98.4 F 09/23/22 18:35 Pulse 102 H 09/23/22 21:52 Resp 19 09/23/22 21:52 BP 112/70 09/23/22 21:52 Pulse Ox 97 09/23/22 21:52 O2 Del Method Room Air 09/23/22 18:35 BMI result Body Mass Index 30.8 Middle-aged male lying in bed in no distress Neck supple, no JVD Regular rate and rhythm, S1-S2 heard Regular breath sounds bilaterally, no wheezing or crackles appreciated Abdomen soft nontender, no guarding, no rigidity Patient is awake, alert and oriented to self, place, time and person ; no focal motor deficit Extremity: Left upper extremity with swelling, erythema, warmth and tenderness Skin: Multiple needle taylor over bilateral upper extremity Psych: Normal mood No pedal edema Results Labs 09/23/22 21:10 09/23/22 19:18 Labs: Laboratory Results - last 24 hr 09/23/22 09/23/22 09/23/22 19:10 19:18 21:10 MCV 85.8 MCH 29.6 MCHC 34.5 RDW 13.3 Plt Count 287 MPV 8.7 L Immature Gran % (Auto) 0.5 H Neut % (Auto) 90.5 H Lymph % (Auto) 4.3 L Harney % (Auto) 2.0 Eos % (Auto) 2.5 Baso % (Auto) 0.2 Lymph # (Auto) 0.7 L Harney # (Auto) 0.3 Eos # (Auto) 0.4 Baso # (Auto) 0.0 Abs Immat Gran (auto) 0.08 H Absolute Neuts (auto) 13.8 H Absolute Nucleated RBC 0.000 Nucleated RBC % (auto) 0.0 Smear Tech's Comments VERIFIED Anion Gap 13 Estim Creat Clear Calc 131.8 Estimated GFR > 60 Random Glucose 80 Lactic Acid 1.1 Calcium 8.2 L Total Bilirubin 2.1 H Direct Bilirubin 1.1 H AST 14 ALT 8 Alkaline Phosphatase 110 Total Protein 5.3 L Albumin 2.6 L Imaging Radiologist's Impressions: Impressions Venous Duplex 09/23/22 16:28 IMPRESSION: No DVT demonstrated in the left upper extremity with limitations as described above. Duplex Scan Upper Extremity Artery 09/23/22 16:38 IMPRESSION: There is no evidence of any hemodynamically significant left upper extremity arterial disease by waveform or duplex Doppler criteria at rest. Humerus CT 09/23/22 20:50 IMPRESSION: Limited evaluation secondary to motion and patient body habitus. 1. No evidence of organized collection or abscess. 2. Diffuse soft tissue thickening and stranding along the included portions of the left upper extremity. 3. Incidentally noted 0.6 cm solid pulmonary nodule in the left upper lobe and 0.8 cm solid pulmonary nodule in the left lower lobe. Recommend further evaluation with a chest CT. Assessment and Plan (1) Cellulitis: Qualifiers: Laterality: left Site of cellulitis: extremity Site of cellulitis of extremity: upper extremity Qualified Code(s): L03.114 - Cellulitis of left upper limb Status: Acute Plan This is a 47-year-old male with pertinent history of IV substance (opioid) use disorder on methadone who presents to the emergency department for evaluation of left upper extremity swelling, redness and pain. #. Sepsis due to left upper extremity cellulitis: Will admit patient and initiate empiric IV vancomycin in a patient with IV substance use disorder. Blood cultures and lactic acid obtain. Patient resuscitated with IV crystalloids in the ER #. Opioid use disorder: On methadone #. Imaging with pulmonary nodules. CT chest was ordered in the ER, pending Med rec pending DVT prophylaxis: Lovenox Full code Regular diet Admit as inpatient and will require two night minimum hospital stay for IV antibiotics Time Spent With Patient Time: Total time managing care of this patient today ____ minutes. Quality Stroke Does the patient have a stroke diagnosis?: No VTE Prior VTE?: No VTE Risk Level:: Medical - moderate - high VTE Device Contraindication: Treatment Not Indicated VTE Drug Contraindication: N/A - Med Ordered
[2022-09-24] VITALS: BP 99/40; PULSE 94; RESP 20; TEMP 36.9; O2SAT 95
[2022-09-24] MEDS: 0.9 % Sodium Chloride Flush 3 ML SYRINGE IVFLUSH ×2 (05:09→09:28)
[2022-09-24 06:40] LABS: MANUAL DIFF FLAG NO
[2022-09-24 06:43] LABS: Basophils Percent Auto 0.2 % (0-2); Eosinophils Absolute Auto 0.3 X10*3/uL (0.0-0.4); Eosinophils Percent Auto 2.4 % (0-4); Hematocrit 34.1 % (42.0-52.0); Hemoglobin 11.9 g/dl (14.0-18.0); Imm Gran Abs Auto 0.12 X10*3/uL (0.00-0.03); Imm Gran Pct Auto 0.9 % (0.0-0.4); Lymphocytes Absolute Auto 0.6 X10*3/uL (1.2-4.9); Lymphocytes Percent Auto 4.8 % (20-40); Mean Corpuscular HGB Conc 34.9 g/dl (31.0-36.0); Mean Corpuscular Volume 85.9 fL (80.0-98.0); Mean Platelet Volume 8.7 fL (9.4-12.4); Monocytes Absolute Auto 0.3 X10*3/uL (0.1-1.2); Monocytes Percent Auto 2.2 % (2-11); Neutrophils Absolute Auto 11.6 x10*3/uL (2.0-8.3); Neutrophils Percent Auto 89.5 % (45-73); Platelet Count 257 X10*3/uL (160-400); Red Blood Count 3.97 X10*6/uL (4.60-5.80); Red Cell Distribution Width 13.2 % (11.0-16.0)
[2022-09-24 06:48] VITALS: BP 99/53; PULSE 84; RESP 17; TEMP 36.7; O2SAT 95
[2022-09-24 07:00] LABS: Anion Gap 10 (12-20); Blood Urea Nitrogen 26 mg/dL (9-16); Calcium 8.1 mg/dL (8.4-10.2); Carbon Dioxide 25 mmol/L (22-29); Chloride 104 mmol/L (96-108); Creatinine Clr Calc Pharmacy 141.1; Estimated Glomerular Filt Rate > 60; Glucose Random 117 mg/dL (60-115); Potassium 4.1 mmol/L (3.3-5.1); Sodium 135 mmol/L (135-145)
--- NOTE | 2022-09-24 07:35 | PHA.PROG ---
Admission Date/Time: September 23, 2022 23:18 Indication: SKIN AND SKIN STRUCTURE Weight in k.862 kg Adjusted body weight in K.8 [place] body weight in Kg: Obesity Dosing Indication % IBW: Serum Creatinine - Last 168 Hours 09/23/22 09/24/22 19:18 06:34 Creatinine 0.91 0.85 Estimated CrCl and GFR - Last 168 Hours 09/23/22 09/24/22 19:18 06:34 Estim Creat Clear Calc 131.8 141.1 Estimated GFR > 60 > 60 Vancomycin Loading Dose: 2000 Current Vancomycin Dosing Regimen: 1500 Q12H Vancomycin Monitoring using AUC goal of 400 - 600 range with trough as surrogate marker: AUC 551, TROUGH 17.2 Date and Time for next Vancomycin Level to be drawn: 09/25 @0600 Pharmacist Comments on Vancomycin Plan: Vancomycin dosing will take advantage of [employer] as a clinical decision support tool that uses Bayesian modeling to calculate individual patient's pharmacokinetic parameters and forecast the patient's drug concentration time course with the target goal AUC 24 range of 400 - 600 mg/L/hr.
--- NOTE | 2022-09-24 08:27 | HE.PHANOTE ---
Methadone Verification Pharmacy has received the methadone verification form from [facility]. Patient last received methadone 119 mg on 09/22/22 @ [facility]. Confirmed with CANDACE Gr at the clinic. Jessica Chavira, JosD
[2022-09-24] MEDS: methADONE HCl 20 MG/2 ML ORAL.CONC 119 MG PO (08:40)
[2022-09-24] MEDS: Lactated Ringers 1,000 ML 125 ML IVCONT ×2 (09:28→16:24)
[2022-09-24] MEDS: vancomycin HCL 1,500 MG in 0.9 % Sodium Chloride 500 ML 333.33 MG IV (09:28)
--- NOTE | 2022-09-24 09:37 | PC.NURSE ---
obtained report from marta, sahra pt care at 930 am, pt brought to overflow, patient a&ox3, c/o lt arm pain/itchiness, pt requesting something for the itching, Jelena Jovel was notified and will come to see the patient shortly, iv fluids and iv antibiotics started per order, pt has + csm/pulses to lue, call prajapati within reach, will continue to monitor
[2022-09-24] MEDS: hydrOXYzine HCL 25 MG TABLET PO (10:11)
--- NOTE | 2022-09-24 10:12 | PC.NURSE ---
pt medicated for itchiness
[2022-09-24] MEDS: diphenhydrAMINE HCL 25 MG CAPSULE PO (11:30)
--- NOTE | 2022-09-24 11:30 | PC.NURSE ---
pt medicated with benadryl per order, pharmacy called to obtain benadryl lotion,pt aware we are awaiting for lotion from pharmacy
[2022-09-24 12:15] LABS: Alanine Aminotransferase 7 U/L (0-40); Albumin Level 2.4 g/dL (3.5-5.0); Alkaline Phosphatase 93 U/L (39-117); Aspartate Amino Transferase 10 U/L (5-37); Bilirubin Direct 0.9 mg/dL (0.0-0.5); Bilirubin Total 1.5 mg/dL (0.0-1.0); Total Protein 4.8 g/dL (6.5-8.0)
--- NOTE | 2022-09-24 13:29 | P.PNIM_ITS ---
Subjective Subjective Date of Service: 09/24/22 Interval History: seen and examined this morning follow up for left arm cellulitis blood cultures returned positive patient reporting pain in left arm, denies fever or chills having itching b/l arms. has history of psoriasis, does not take meds for it Review of Systems Review of Systems: Yes all other systems are reviewed and are negative Constitutional Constitutional: Denies chills and Denies fever(s) ENT Ears, Nose, Mouth, and Throat: Denies dizziness Cardiovascular Cardiovascular: Denies chest pain, Denies palpitations and Denies dyspnea Respiratory Respiratory: Denies cough and Denies dyspnea Gastrointestinal Gastrointestinal: Reports abdominal pain, Denies nausea and Denies vomiting Neurologic Neurologic: Denies dizziness Endocrine Endocrine: Denies palpitations Physical Exam Vital Signs: Vital Signs: Last Vital Signs Temp 98.0 F 09/24/22 06:48 Pulse 84 09/24/22 06:48 Resp 17 09/24/22 06:48 BP 99/53 L 09/24/22 06:48 Pulse Ox 95 09/24/22 06:48 O2 Del Method Room Air 09/24/22 06:48 BMI result Body Mass Index 30.8 Const: General: comfortable, no acute distress, alert and awake Nutritional Appearance: average body habitus Orientation/consciousness: patient oriented x3 Resp: Effort & Inspection: normal respiratory effort, able to speak in complete sentences, no respiratory distress and no use of accessory muscles Auscultation: clear to auscultation bilaterally Cardio: Rate: regular rate Heart sounds: S1 normal heart sound present and S2 normal heart sound present GI: Inspection: No distended Palpation (GI): Soft to palpation and nontender Skin: Other: psoriasis b/l posterior arm/elbow Neuro: General: patient oriented x3 and CN's II-XI intact bilaterally Extrem: Other: LUE with swelling, induration left upper arm with erythema; no fluctuance or open wounds, scaly skin seems c/w psoriasis as above. decreased ROM at left elbow, left shoulder. good peripheral pulses Objective Data Active Medications Acetaminophen (Acetaminophen 325 Mg Tablet) 650 mg PO Q6H PRN PRN Reason: Pain, Mild (Pain Scale 1-3) Diphenhydramine HCl (Diphenhydramine Hcl 25 Mg Capsule) 25 mg PO Q6H PRN PRN Reason: Itching Last Admin: 09/24/22 11:30 Dose: 25 mg Documented By: MAGGIE Enoxaparin Sodium (Enoxaparin Sodium 40 Mg/0.4 Ml Syringe) 40 mg SUBCUT 2200 [facility] Last Admin: 09/24/22 05:09 Dose: Not Given Documented By: QUYEN Non-Admin Reason: Patient Refused Vancomycin HCl 1,500 mg/ (Sodium Chloride) 500 mls @ 333.333 mls/hr IV Q12H [facility] Last Infusion: 09/24/22 11:09 Dose: 0 mls/hr Documented By: MAGGIE Lactated Ringer's (Lr) 1,000 mls @ 125 mls/hr IVCONT .Q8H [facility] Last Admin: 09/24/22 09:28 Dose: 125 mls/hr Documented By: MAGGIE Melatonin (Melatonin 3 Mg Tablet) 6 mg PO BEDTIME PRN PRN Reason: Insomnia Methadone HCl (Methadone Hcl 20 Mg/2 Ml Oral.Conc) 119 mg PO DAILY [facility] Last Admin: 09/24/22 08:40 Dose: 119 mg Documented By: GWEN Methocarbamol (Methocarbamol 750 Mg Tablet) 750 mg PO TID PRN PRN Reason: muscle spasm Ondansetron HCl (Ondansetron Hcl 4 Mg/2 Ml Vial) 4 mg IVPUSH Q8H PRN PRN Reason: Nausea and Vomiting Oxycodone HCl (Oxycodone Hcl Immed Release 5 Mg Tablet) 5 mg PO Q6H PRN PRN Reason: Pain, Moderate(Pain Scale 4-6) Pharmacy Consult (Consult Rx Perform Med Rec) 1 each MISCELLANE ONCE PRN PRN Reason: Consult order Pharmacy Consult (Consult Rx Vancomycin Dosing) 1 each MISCELLANE DAILY PRN PRN Reason: Consult order Pharmacy Consult (Consult Rx Perform Med Rec) 1 each MISCELLANE ONCE PRN PRN Reason: Consult order Sodium Chloride (0.9 % Sodium Chloride Flush 3 Ml Syringe) 3 ml IVFLUSH QSHIFT [facility] Last Admin: 09/24/22 09:28 Dose: 3 ml Documented By: MAGGIE Zinc Acetate/Diphenhydramine (Diphenhydramine Hcl 2 % Cream 28 Gm Tube) 1 appl TOPICAL BID PRN; Protocol PRN Reason: Itching Labs 09/24/22 06:34 09/24/22 06:34 Labs: Laboratory Results - last 24 hr 09/23/22 09/23/22 09/23/22 19:10 19:18 21:10 MCV 85.8 MCH 29.6 MCHC 34.5 RDW 13.3 Plt Count 287 MPV 8.7 L Immature Gran % (Auto) 0.5 H Neut % (Auto) 90.5 H Lymph % (Auto) 4.3 L [place] % (Auto) 2.0 Eos % (Auto) 2.5 Baso % (Auto) 0.2 Lymph # (Auto) 0.7 L [place] # (Auto) 0.3 Eos # (Auto) 0.4 Baso # (Auto) 0.0 Abs Immat Gran (auto) 0.08 H Absolute Neuts (auto) 13.8 H Absolute Nucleated RBC 0.000 Nucleated RBC % (auto) 0.0 Smear Tech's Comments VERIFIED Anion Gap 13 Estim Creat Clear Calc 131.8 Estimated GFR > 60 Random Glucose 80 Lactic Acid 1.1 Calcium 8.2 L Total Bilirubin 2.1 H Direct Bilirubin 1.1 H AST 14 ALT 8 Alkaline Phosphatase 110 Total Protein 5.3 L Albumin 2.6 L 09/24/22 09/24/22 06:34 06:34 MCV 85.9 MCH 30.0 MCHC 34.9 RDW 13.2 Plt Count 257 MPV 8.7 L Immature Gran % (Auto) 0.9 H Neut % (Auto) 89.5 H Lymph % (Auto) 4.8 L [place] % (Auto) 2.2 Eos % (Auto) 2.4 Baso % (Auto) 0.2 Lymph # (Auto) 0.6 L [place] # (Auto) 0.3 Eos # (Auto) 0.3 Baso # (Auto) 0.0 Abs Immat Gran (auto) 0.12 H Absolute Neuts (auto) 11.6 H Absolute Nucleated RBC 0.000 Nucleated RBC % (auto) 0.0 Smear Tech's Comments Anion Gap 10 L Estim Creat Clear Calc 141.1 Estimated GFR > 60 Random Glucose 117 H Lactic Acid Calcium 8.1 L Total Bilirubin 1.5 H Direct Bilirubin 0.9 H AST 10 ALT 7 Alkaline Phosphatase 93 Total Protein 4.8 L Albumin 2.4 L Microbiology Microbiology Results: Microbiology 09/23/22 19:00 Blood Culture - Preliminary Blood - Venous Prelim: GPC Gram Stain only 09/23/22 19:00 Blood Culture - Preliminary Blood - Venous Prelim: GPC Gram Stain only Assessment and Plan (1) Cellulitis: Status: Acute (2) Gram-positive bacteremia: Status: Acute Plan This is a 47-year-old male with pertinent history of IV substance (opioid) use disorder on methadone who presents to the emergency department for evaluation of left upper extremity swelling, redness and pain. Sepsis due to left upper extremity cellulitis and bacteremia: met criteria with sbc and tachycardia. LA wnl Humerus CT with no evidence of abscess Blood cultures growing GPC continue IV vancomycin given h/o IVDU follow final blood cultures ID consult pending Opioid use disorder: continue home dose of methadone incidental finding of pulmonary nodules on humerus CT dedicated CT chest was ordered in the ER and is pending psoriasis not currently on meds outpatient follow up DVT prophylaxis: Lovenox Full code Regular diet attending - dr. Pope requires ongoing inpatient hospitalization for IV antibiotics Time Spent With Patient Time: Total time managing care of this patient today ____ minutes. Quality Stroke Does the patient have a stroke diagnosis?: No VTE Prior VTE?: No VTE Risk Level:: Medical - moderate - high VTE Device Contraindication: Treatment Not Indicated VTE Drug Contraindication: N/A - Med Ordered
[2022-09-24] MEDS: diphenhydrAMINE HCl 2 % Cream 28 GM TUBE 1 APPL TOPICAL (14:10)
[2022-09-24 14:17] VITALS: BP 134/76; PULSE 91; RESP 18; TEMP 36.6; O2SAT 99
[2022-09-24] MEDS: diphenhydrAMINE HCL 25 MG CAPSULE 50 MG PO (16:24)
[2022-09-24] MEDS: LORazepam 1 MG TABLET PO (16:24)
--- NOTE | 2022-09-24 16:27 | PC.NURSE ---
report given, transport called
--- NOTE | 2022-09-24 16:28 | PC.NURSE ---
pt a&x3, pt noted to be seeking to leave and asking if he could take the abx at home vs via iv. this nurse had a long conversation about his iv abx and why he needs to take them, pt continues to complain of the increased itching-provider was notified about the patient asking about po meds to discharge home as he felt he could better handle the itchiness from home. provider increased dose of benadryl and added a dose of ativan which the patient was medicated with
--- NOTE | 2022-09-24 16:34 | PC.NURSE ---
this nurse added a COWS score to the worklist, COWS score was 4 at this time. pt just medicated.
[2022-09-24 16:58] VITALS: BP 112/58; PULSE 109; RESP 19; TEMP 36.7; O2SAT 99
--- NOTE | 2022-09-24 19:20 | PC.NURSE ---
PT left AMA, pt signed paperwork, IV removed, Dr. Metz aware.
--- NOTE | 2022-09-24 19:27 | PM.EVENT ---
Event Note Date of Service: 09/24/22 Event Note: I was informed by the nurse that pt eloped. Time Spent With Patient Time: Total time managing care of this patient today ____ minutes.
--- NOTE | 2022-09-25 07:09 | P.DS_ITS ---
DS: Providers Provider Date of Service: 09/24/22 Date of admission: 09/23/22 23:18 Date of discharge: 09/24/22 Primary care physician: Unknown Physician Consults: 09/24/22 09:50 Consult to Infectious Diseases Routine Consulting Provider: [facility] Infectious Disease Reason for consultation: bacteremia Has provider been notified: No 09/24/22 16:49 Addiction Medicine Routine Consulting Provider: Addiction Covering Reason for consultation: IVDU Has provider been notified: No Attending physician on discharge: Kei Pope Discharging clinician: Jelena Jovel DS: Diagnosis Discharge Diagnosis (1) Cellulitis: Status: Acute (2) Gram-positive bacteremia: Status: Acute DS: Summary Hospital Course Hospital Course: From H&P on day of admission This is a 47-year-old male with pertinent history of IV substance (opioid) use disorder on methadone who presents to the emergency department for evaluation of left upper extremity swelling, redness and pain.? Patient states he has been having left upper extremity swelling and pain that started 3 days prior to presentation.? It has been worsening and associated with erythema.? No purulent drainage.? No history of similar symptoms of cellulitis in the past.? States his last IV drug use was 2 weeks ago.? Patient denies fever, chills, chest discomfort, palpitations, shortness of breath, abdominal pain, changes in urinary or bowel habits. In the emergency department, patient was found to be septic Sepsis due to left upper extremity cellulitis and bacteremia:? met criteria with sbc and tachycardia. LA wnl. Humerus CT with no evidence of abscess Blood cultures growing GPC. continue IV vancomycin given h/o IVDU. follow final blood cultures. ID consult pending Patient indicated to nurse that he wanted to leave against medical advice, by the time the provider arrived he had already left. The severity of his medical illness had been discussed with him earlier in the day and the risks of leaving without proper treatment including worsening sepsis and had been reviewed. Blood cultures growing GPC, final sensitivities not back, doxycycline will be sent to pharmacy, this is not standard treatment and does not replace IV antbiotics and is not adequate treatment for bacteremia. Time Spent with Patient Time attestation: Total time managing care of this patient today ____ minutes. Discharge coordination time: Greater than 30 minutes Quality: Safe Use of Opioids Does Pt have an Active Cancer Diagnosis on the Problem List?: No Quality: Stroke Does the patient have a stroke diagnosis?: No Physical Exam Vital Signs: Vital Signs: Last Vital Signs Temp 98.0 F 09/24/22 16:58 Pulse 109 H 09/24/22 16:58 Resp 19 09/24/22 16:58 BP 112/58 L 09/24/22 16:58 Pulse Ox 99 09/24/22 16:58 O2 Del Method Room Air 09/24/22 16:58 BMI result Body Mass Index 30.8 Const: General: comfortable, no acute distress, alert and awake Nutritional Appearance: average body habitus Orientation/consciousness: patient oriented x3 Resp: Effort & Inspection: normal respiratory effort, able to speak in complete sentences, no respiratory distress and no use of accessory muscles Auscultation: clear to auscultation bilaterally Cardio: Rate: regular rate Heart sounds: S1 normal heart sound present and S2 normal heart sound present GI: Inspection: No distended Palpation (GI): Soft to palpation and nontender Skin: Other: psoriasis b/l posterior arm/elbow Neuro: General: patient oriented x3 and CN's II-XI intact bilaterally Extrem: Other: LUE with swelling, induration left upper arm with erythema; no fluctuance or open wounds, scaly skin seems c/w psoriasis as above. decreased ROM at left el bow, left shoulder. good peripheral pulses DS: Data Data Completed and Pending Labs on day of discharge: Laboratory Results - last 24 hr 09/24/22 06:34 Total Bilirubin 1.5 H Direct Bilirubin 0.9 H AST 10 ALT 7 Alkaline Phosphatase 93 Total Protein 4.8 L Albumin 2.4 L Preliminary micro results at discharge 09/23/22 19:00 Blood Culture - Preliminary Blood - Venous Prelim: GPC Gram Stain only 09/23/22 19:00 Blood Culture - Preliminary Blood - Venous Prelim: GPC Gram Stain only Discharge Plan Discharge Patient Disposition: Left Against Medical Advice Discharge Diagnosis: Gram positive bacteremia Referrals: Physician,Unknown J [Primary Care Provider] - 1 Week Discharge Medications: New doxycycline hyclate 100 mg tablet 100 mg PO BID 14 Days Qty: 28 0RF Continued naproxen 500 mg tablet 500 mg PO BID PRN (Reason: pain) Qty: 30 0RF methocarbamol 750 mg tablet 750 mg PO TID PRN (Reason: muscle spasm) Qty: 20 0RF methadone [Methadone Intensol] 10 mg/mL Concentrate 119 mg PO DAILY Discharge Orders: Discharge Order (Routine); Ordered 09/24/22 Ordered By: Gato Sanchez Care Plan Goals: left AMA Health Concerns: left arm cellulitis bacteremia Plan of Treatment: left AMA ideally return to the hospital for IV antitiotics and proper treatment doxycyline is not adequate treatment Assessment: left against medical advice Discharge Date/Time: 09/24/22 19:20
== END 2022-09-24 19:20 | disposition left against medical advice (07) | DRG 720 ==
LOC: HO.ED 21:59 → HO.EDOVER 23:21 → HO.S3 09-24 14:22
PROVIDERS: Physician Assistant Medical; Admitting Provider Student in an Organized Health Care Education/Training Program; Emergency Provider Emergency Medicine; Visit Provider Physician Assistant Medical
DX: A41.9 Sepsis, unspecified organism (principal); L03.114 Cellulitis of left upper limb; L40.9 Psoriasis, unspecified; R91.8 Other nonspecific abnormal finding of lung field; Z79.899 Other long term (current) drug therapy
CPT/HCPCS: 36415; 73201; 80048; 80076; 83605; 85025; 87040; 87077; 87147; 87186; 87205; 92950; 93005; 93931; 93971; 99285; J1170; J2543; J3370; J3371; Q9967